=== PATIENT | female | born 2000 | race Caucasian/White ===

== ENCOUNTER → 2019-01-09 | Day surgery (SDC) | payer BC, OTHER ==
[2019-01-02 14:47] VITALS: BMI 23.6
[~2019-01-09] MED LIST: SODIUM CHLORIDE 0.9% 1,000 ML IV SCH
[2019-01-09 08:55] VITALS: RESP 18; TEMP 98.4
[2019-01-09 11:03] VITALS: BP 124/68; PULSE 68
--- NOTE | 2019-01-09 11:24 | P.PCN ---
Preoperative Diagnosis: Diagnosis Recurrent presyncope Twelve-lead ECG Sinus mechanism normal [place] narrow QRS waves no delta waves normal st segments normal qt interval Tilt table test per protocol baseline heart rate 71 beats a minute baseline blood pressure 117/74 mmhg patient was tilted upright at 70 per protocol in immediate drop in blood pressure 90/54 mmhg associated with lightheadedness however this resolved quickly and her blood pressure normalized and remained in the normal range thereafter between 110-133 mmhg systolic and the diastolic mostly in the 70s heart rates remained in the 80s and 90s there is no evidence for neurocardiogenic syncope When she was laid supine heart rate went down to 61 beats a minute Impression normal twelve-lead ecg no evidence for neurocardiogenic syncope normal blood pressure response to upright tilting minimal increase in heart rate upon standing, in the first 10 minutes to about a maximum of 20 beats
== END ==
LOC: CATHEP 08:34
PROVIDERS: ATTEND Internal Medicine Clinical Cardiac Electrophysiology
DX: R55 Syncope and collapse (principal); Z88.5 Allergy status to narcotic agent; Z88.0 Allergy status to penicillin
CPT/HCPCS: 93660

== ENCOUNTER → 2019-07-25 | Outpatient (CLI) | payer BC ==
--- NOTE | 2019-07-25 10:22 | US ---
EXAMINATION TYPE: US abdomen complete DATE OF EXAM: 07/25/2019 COMPARISON: NONE CLINICAL HISTORY: R11.2 nausea with vomiting, unspecified, R19.7; on control pills. EXAM MEASUREMENTS: Liver Length: 12.5 cm Gallbladder Wall: 0.2 cm CBD: 0.2 cm Spleen: 9.2 cm Right Kidney: 10.2 x 5.0 x 3.5 cm Left Kidney: 9.8 x 4.4 x 5.0 cm Pancreas: wnl Liver: periportal wall brightness is noted Gallbladder: wnl Evidence for sonographic Harris's sign: no CBD: wnl Spleen: wnl Right Kidney: No hydronephrosis or masses seen Left Kidney: No hydronephrosis or masses seen Upper IVC: wnl Abd Aorta: wnl The intrahepatic portion of the IVC and proximal abdominal aorta are within normal limits. There i s no evidence of cholelithiasis. Common bile duct is unremarkable. The visualized portions of the p ancreas are homogenous. The spleen is unremarkable. Kidneys are symmetric and free of hydronephrosi s. No renal lesions are seen. IMPRESSION: Portal triads are echogenic, which could relate to technique in this patient with a pauci ty of abdominal fat, however this can be seen in the setting of hepatitis and corresponding bloodwork is recommended to exclude hepatitis in this patient with nausea and vomiting.
== END | disposition home or self-care (01) ==
LOC: RADUSWWP 06:50
PROVIDERS: ATTEND Family Medicine
DX: R11.2 Nausea with vomiting, unspecified (principal); R19.7 Diarrhea, unspecified
CPT/HCPCS: 76700

== ENCOUNTER → 2019-10-31 | Outpatient (CLI) | payer BC ==
[2019-10-31 13:39] LABS: HCT 44.4 % (34.0-46.0); HGB 13.9 gm/dL (11.4-16.0); MCH 29.9 pg (25.0-35.0); MCHC 31.2 g/dL (31.0-37.0); MCV 95.8 fL (80.0-100.0); Mean Platelet Volume 8.1; Platelet Count 219 k/uL (150-450); RBC 4.64 m/uL (3.80-5.40); RDW 12.6 % (11.5-15.5); WBC 4.2 k/uL (4.0-11.0)
[2019-10-31 18:53] LABS: Albumin/Globulin Ratio 2.5 (1.60-3.17); Anion Gap 5.2 mmol/L (4.00-12.00); BUN/Creat Ratio 8.75 Ratio (12.00-20.00); Calcium 9.5 mg/dL (8.7-10.3); Carbon Dioxide 26.8 mmol/L (21.6-31.8); Magnesium 2.1 mg/dL (1.5-2.4); Non-African American GFR(CKD) 106.1 (60.0-200.0); Potassium 4.7 mmol/L (3.5-5.5); Total Bilirubin 0.6 mg/dL (0.3-1.2)
== END | disposition home or self-care (01) ==
LOC: LABWHC1 13:17
PROVIDERS: ATTEND Nurse Practitioner Adult Health
DX: I95.1 Orthostatic hypotension (principal); R00.0 Tachycardia, unspecified
CPT/HCPCS: 36415; 80053; 83735; 84443; 84481; 85027

== ENCOUNTER → 2019-12-09 | Outpatient (CLI) | payer BC ==
[2019-12-09 20:41] LABS: Gliadin AB IgA, Deaminated NEGATIVE (NEGATIVE); Gliadin AB IgA, Unit <0.2 U/mL; Gliadin AB IgG, Deaminated NEGATIVE (NEGATIVE)
== END | disposition home or self-care (01) ==
LOC: LABWHC1 12:06
PROVIDERS: ATTEND Nurse Practitioner
DX: R63.4 Abnormal weight loss (principal)
CPT/HCPCS: 36415; 83516

== ENCOUNTER 2020-01-01 08:11 | Emergency (ER) | payer BC ==
[2020-01-01 08:16] VITALS: RESP 18
[2020-01-01] MEDS ORDERED: SODIUM CHLORIDE 0.9% 2,000 ML IV ONE (08:36)
[2020-01-01] MEDS ORDERED: ONDANSETRON 4 MG/2 ML VIAL IVP STA (08:37)
--- NOTE | 2020-01-01 08:41 | ED ---
Abdominal Pain HPI - General Chief Complaint: Abdominal Pain Stated Complaint: vomiting Time Seen by Provider: 01/01/20 08:24 Source: patient, RN notes reviewed, old records reviewed Mode of arrival: wheelchair Limitations: no limitations - History of Present Illness Initial Comments: Patient is a 19-year-old female who presents emergency department today for concern for nausea and vomiting starting this morning as well as some episodes of diarrhea and abdominal cramping. Symptoms occurred this morning but she has been doing a bowel prep for a scheduled colonoscopy and EGD to be completed today by Dr. Quezada. Patient reports that she's been feeling somewhat dizzy and lightheaded this morning since the vomiting and diarrhea. Concern for dehydrat ion. Mother reports she feels pale. Patient has a history of low heart rate and mother was concerned with that in regards to her dizziness as well. Denies any local abdominal pain and reports just a cramping pain. - Related Data Home Medications Medication Instructions Recorded Confirmed Albuterol Sulfate [Proair Hfa] 1 - 2 puff INHALATION Q6HR PRN 01/02/19 12/30/19 Multivitamins, Thera [Multivitamin 1 tab PO DAILY 12/30/19 12/30/19 (formulary)] Nadolol [Corgard] 10 mg PO QAM 12/30/19 12/30/19 Norethindrone-E.estradiol-Iron 1 each PO QAM 12/30/19 12/30/19 [Junel Fe 1 mg-20 Mcg Tablet] Ondansetron HCl [Zofran] 4 mg PO Q4HR PRN 12/30/19 12/30/19 Allergies Allergy/AdvReac Type Severity Reaction Status Date / Time codeine Allergy Nausea & Verified 01/01/20 08:14 Vomiting & Diarrhea Penicillins AdvReac Nausea & Verified 01/01/20 08:14 Vomiting Review of Systems ROS Statement: Those systems with pertinent positive or pertinent negative responses have been documented in the HPI. ROS Other: All systems not noted in ROS Statement are negative. Past Medical History Past Medical History: Asthma Additional Past Medical History / Comment(s): headaches, POTS, nausea and vomiting, constipation/diarrhea, History of Any Multi-Drug Resistant Organisms: None Reported Past Surgical History: No Surgical Hx Reported Additional Past Surgical History / Comment(s): oral surgery Past Anesthesia/Blood Transfusion Reactions: Family History of Problems w/ Ane sthesia, Motion Sickness Additional Past Anesthesia/Blood Transfusion Reaction / Comment(s): mom woke up few times during surgery Past Psychological History: Anxiety Smoking Status: Never smoker Past Alcohol Use History: None Reported Past Drug Use History: Marijuana - Past Family History Mother Family Medical History: No Reported History General Exam - General Exam Comments Initial Comments: 19-year-old female. Alert and oriented 3. Limitations: no limitations General appearance: alert, in no apparent distress Head exam: Present: atraumatic, normocephalic, normal inspection Eye exam: Present: normal appearance, PERRL, EOMI. Absent: scleral icterus, conjunctival injection, periorbital swelling ENT exam: Present: normal exam, mucous membranes moist Neck exam: Present: normal inspection. Absent: tenderness, meningismus, lymphadenopathy Respiratory exam: Present: normal lung sounds bilaterally. Absent: respiratory distress, wheezes, rales, rhonchi, stridor Cardiovascular Exam: Present: regular rate, normal rhythm, normal heart sounds. Absent: systolic murmur, diastolic murmur, rubs, gallop, clicks GI/Abdominal exam: Present: soft, normal bowel sounds. Absent: distended, tenderness, guarding, rebound, rigid Extremities exam: Present: normal inspection, full ROM, normal capillary refill. Absent: tenderness, pedal edema, joint swelling, calf tenderness Back exam: Present: normal inspection Neurological exam: Present: alert, oriented X3, CN II-XII intact Psychiatric exam: Present: normal affect, normal mood Skin exam: Present: warm, dry, intact, normal color. Absent: rash Course Vital Signs 01/01/20 01/01/20 08:14 09:24 Temperature 98.3 F 97.8 F Pulse Rate 55 L 52 L Respiratory 18 18 Rate Blood Pressure 128/91 138/87 O2 Sat by Pulse 100 100 Oximetry Medical Decision Making - Medical Decision Making 19-year-old female presents emergency room today for nausea and vomiting diarrhea episodes after completing bowel prep for upcoming EGD and colonoscopy today. Patient arrived white pale lining of nausea. She appeared clinically dehydrated with dry oropharynx. She is given 2 L bolus. Laboratory obtained results of the unremarkable. She does feel better after receiving hydration. Patient is concerned she's had a low heart rate. She solicited and a beta snow and she did not take that today. Discussed discontinuing falling up with cardiology in regards to reach zooming a beta snow. Patient understands treatment plan will comply. She'll be discharged from the ER and go directly to Endo for her procedures. - Lab Data Result diagrams: 01/01/20 08:42 01/01/20 08:42 Lab Results 01/01/20 01/01/20 01/01/20 Range/Units 08:42 08:42 08:42 WBC 6.6 (4.0-11.0) k/uL RBC 4.91 (3.80-5.40) m/uL Hgb 15.1 (11.4-16.0) gm/dL Hct 45.3 (34.0-46.0) % MCV 92.3 (80.0-100.0) fL MCH 30.7 (25.0-35.0) pg MCHC 33.3 (31.0-37.0) g/dL RDW 12.2 (11.5-15.5) % Plt Count 284 (150-450) k/uL Neutrophils % 61 % Lymphocytes % 29 % Monocytes % 6 % Eosinophils % 1 % Basophils % 1 % Neutrophils # 4.0 (1.3-7.7) k/uL Lymphocytes # 1.9 (1.0-4.8) k/uL Monocytes # 0.4 (0-1.0) k/uL Eosinophils # 0.1 (0-0.7) k/uL Basophils # 0.1 (0-0.2) k/uL Sodium 138 (137-145) mmol/L Potassium 5.1 (3.5-5.1) mmol/L Chloride 105 (98-107) mmol/L Carbon Dioxide 23 (22-30) mmol/L Anion Gap 10 mmol/L BUN 9 (7-17) mg/dL Creatinine 0.83 (0.52-1.04) mg/dL Est GFR (CKD-EPI)AfAm >90 (>60 ml/min/1.73 sqM) Est GFR (CKD-EPI)NonAf >90 (>60 ml/min/1.73 sqM) Glucose 104 H (74-99) mg/dL Calcium 10.6 H (8.4-10.2) mg/dL Total Bilirubin 1.2 (0.2-1.3) mg/dL AST 23 (14-36) U/L ALT 15 (4-34) U/L Alkaline Phosphatase 44 (38-126) U/L Total Protein 8.0 (6.3-8.2) g/dL Albumin 5.1 H (3.5-5.0) g/dL HCG, Qual Not Detected 01/01/20 09:08 EKG performed shows sinus bradycardia otherwise normal EKG. Ventricular rate of 47 bpm. Verbal is 118 ms. QRS duration is 92 ms. QT QTc is 456/403 ms. Disposition Clinical Impression: Dehydration, Bradycardia Disposition: HOME SELF-CARE Condition: Good Instructions (If sedation given, give patient instructions): Dehydration (ED) Additional Instructions: Follow-up with GI for this procedure to chart going to regards to findings. Recommended follow-up with her it support specialist in discussing beta snow dosing. Is patient prescribed a controlled substance at d/c from ED?: No Referrals: Priya Zimmerman III, MD [Primary Care Provider] - 1-2 days Time of Disposition: 10:01
[2020-01-01 08:59] LABS: Basophils # (A) 0.1 k/uL (0-0.2); Basophils % (A) 1 %; Eosinophils # (A) 0.1 k/uL (0-0.7); Eosinophils % (A) 1 %; HCT 45.3 % (34.0-46.0); HGB 15.1 gm/dL (11.4-16.0); Lymphocytes # (A) 1.9 k/uL (1.0-4.8); Lymphocytes % (A) 29 %; MCH 30.7 pg (25.0-35.0); MCHC 33.3 g/dL (31.0-37.0); MCV 92.3 fL (80.0-100.0); Mean Platelet Volume 7.9; Monocytes # (A) 0.4 k/uL (0-1.0); Monocytes % (A) 6 %; Neutrophils % (A) 61 %; Platelet Count 284 k/uL (150-450); RBC 4.91 m/uL (3.80-5.40); RDW 12.2 % (11.5-15.5); WBC 6.6 k/uL (4.0-11.0)
[2020-01-01 09:05] LABS: ALT 15 U/L (4-34); AST 23 U/L (14-36); African American GFR (CKD) >90 (>60 ml/min/1.73 sqM); Albumin 5.1 g/dL (3.5-5.0); Alkaline Phosphatase 44 U/L (38-126); Anion Gap 10 mmol/L; Blood Urea Nitrogen 9 mg/dL (7-17); Calcium 10.6 mg/dL (8.4-10.2); Carbon Dioxide 23 mmol/L (22-30); Chloride 105 mmol/L (98-107); Glucose 104 mg/dL (74-99); Non-African American GFR(CKD) >90 (>60 ml/min/1.73 sqM); Potassium 5.1 mmol/L (3.5-5.1); Sodium 138 mmol/L (137-145); Total Bilirubin 1.2 mg/dL (0.2-1.3)
[2020-01-01 09:26] VITALS: BP 138/87; PULSE 52; TEMP 97.8
== END 2020-01-01 10:16 | disposition home or self-care (01) ==
LOC: EC 08:11
DX: E86.0 Dehydration (principal); R00.1 Bradycardia, unspecified; R11.2 Nausea with vomiting, unspecified; R10.9 Unspecified abdominal pain; R19.7 Diarrhea, unspecified; J45.909 Unspecified asthma, uncomplicated; Z79.51 Long term (current) use of inhaled steroids; Z79.3 Long term (current) use of hormonal contraceptives; Z88.5 Allergy status to narcotic agent; Z88.0 Allergy status to penicillin
CPT/HCPCS: 36415; 93005; 80053; 85025; 84703; 99284; 96374; 96361; J2405

== ENCOUNTER 2020-01-01 10:35 | Day surgery (SDC) | payer BC ==
[2019-12-30 11:55] VITALS: BMI 18.3
[~2020-01-01 10:35] MED LIST changes: +LACTATED RINGERS 1,000 ML IV SCH; -SODIUM CHLORIDE 0.9% 1,000 ML IV SCH
[2020-01-01 10:41] VITALS: TEMP 97.5
[2020-01-01] MEDS ORDERED: PROPOFOL 10 MG/ML 20 ML VIAL IV ONE (11:19)
[2020-01-01] MEDS ORDERED: MIDAZOLAM 2 MG/2 ML VIAL ONE (11:19)
[2020-01-01] MEDS ORDERED: fentaNYL (PF) 50 MCG/ML 2 ML AMP ONE (11:19)
--- NOTE | 2020-01-01 11:40 | P.PCN ---
Date of Procedure: 01/01/20 Procedure(s) Performed: Brief history: Patient is a pleasant 19-year-old white female scheduled for an elective upper endoscopy as well as colonoscopy as a part of evaluation of abdominal pain, intermittent nausea vomiting, fevers habits for the last 9 months duration. She lost 50 pounds since onset of the symptoms Procedure performed: Esophagogastroduodenoscopy with biopsy Colonoscopy with biopsy Preoperative diagnosis: Abdominal pain/nausea vomiting change in bowel habits Progressive weight loss of 50 pounds in the last 6 months Anesthesia: MAC Procedure: After informed consent was obtained from the patient was brought into the endoscopy unit and IV sedation was administered by anesthesia under continuous monitoring. Initially upper endoscopy was done. The Olympus GF 160 video endoscope was inserted inserted into the mouth and esophagus intubated without any difficulty and was gradually advanced into the stomach and duodenum and carefully examined. The bulb and second part of the duodenum appeared normal. Abscesses were done from the duodenum to rule out celiac disease. The scope was then withdrawn into the stomach adequately insufflated with air and upon careful examination the antrum mild gastritis and biopsies were done from this area. The body, cardia and fundus appeared normal. The scope was then withdrawn into the esophagus. The GE junction was located at 40 cm to the incisors. It appeared regular with no erythema erosions or ulcerations. Rest of the esophagus appeared normal. Patient tolerated the procedure well. At this time the patient continued to remain sedation. Initial digital rectal examination was normal. Olympus CF 160 video colonoscope was then inserted into the rectum and gradually advanced to the cecum without any difficulty. Careful examination was performed as the scope was gradually being withdrawn. The prep wasfair. Terminal ileum was intubated and 20 cm visualized appeared normal. Biopsies were done from this area.The cecum, ascending colon, transverse colon, descending colon, sigmoid colon and rectum appeared normal. and biopsies were done from ascending and descending colon to rule out microscopic/collagenous colitis. Retroflexion was performed in the rectum and no lesions were noted. Patient tolerated the procedure well. Impression: 1 Upper endoscopy revealed mild antral gastritis 2 Colonoscopy was essentially within normal limits with colitis or colorectal neoplasia ] Recommendations: Findings of this examination were discussed with the patient as well as her family. She was advised to follow with the biopsy results and she'll be seen in office in 2-3 weeks.
[2020-01-01 11:52] VITALS: RESP 16
[2020-01-01 12:00] VITALS: BP 114/75; PULSE 63
== END 2020-01-01 12:21 | disposition home or self-care (01) ==
LOC: ORWHC2ENDO 10:35
PROVIDERS: ATTEND Internal Medicine Gastroenterology
DX: K29.50 Unspecified chronic gastritis without bleeding (principal); R19.4 Change in bowel habit; Z79.899 Other long term (current) drug therapy; Z88.5 Allergy status to narcotic agent; Z88.0 Allergy status to penicillin; J45.909 Unspecified asthma, uncomplicated; Z98.890 Other specified postprocedural states
CPT/HCPCS: 81025; 88305; 45380; 43239; J2250; J3010; J2704

== ENCOUNTER 2020-02-02 13:47 | Emergency (ER) | payer BC ==
[2020-02-02 14:25] VITALS: RESP 18
[2020-02-02] MEDS ORDERED: SODIUM CHLORIDE 0.9% 1,000 ML IV STA ×2 (15:03)
--- NOTE | 2020-02-02 15:11 | ED ---
Chest Pain HPI - General Chief Complaint: Chest Pain Stated Complaint: Chest Pain,SOB Time Seen by Provider: 02/02/20 14:51 Source: patient, family, RN notes reviewed, old records reviewed Mode of arrival: wheelchair Limitations: no limitations - History of Present Illness Initial Comments: Elen is a 19-year-old female presents the ER today for multiple chief complaints. She states that she has been having some intermittent chest pain shortness of breath stating that she has had nausea and vomiting for the past few days as well. Patient states that she feels that she can't take a full deep breath. She states that she knows that her apartment is exposed to black mold wants to have testing for this. Patient states that she's had significant weight loss unintentional for the past few months. She's been evaluated by GI multiple specialists. Patient reports that with a known exposure to mold she wanted to have this ruled out as the cause for all of her multiple symptoms. - Related Data Home Medications Medication Instructions Recorded Confirmed Albuterol Sulfate [Proair Hfa] 1 - 2 puff INHALATION Q6HR PRN 01/02/19 01/01/20 Multivitamins, Thera [Multivitamin 1 tab PO DAILY 12/30/19 01/01/20 (formulary)] Nadolol [Corgard] 10 mg PO QAM 12/30/19 01/01/20 Norethindrone-E.estradiol-Iron 1 each PO QAM 12/30/19 01/01/20 [Junel Fe 1 mg-20 Mcg Tablet] Ondansetron HCl [Zofran] 4 mg PO Q4HR PRN 12/30/19 01/01/20 Allergies Allergy/AdvReac Type Severity Reaction Status Date / Time codeine Allergy Nausea & Verified 02/02/20 14:25 Vomiting & Diarrhea Penicillins AdvReac Nausea & Verified 02/02/20 14:25 Vomiting Review of Systems ROS Statement: Those systems with pertinent positive or pertinent negative responses have been documented in the HPI. ROS Other: All systems not noted in ROS Statement are negative. EKG Findings - EKG Comments: EKG Findings:: EKG shows normal sinus rhythm normal EKG. Ventricular rate at 64 bpm.. Intervals 114 ms. QS duration is 92 ms. QT QTc is 408/420 ms. Past Medical History Past Medical History: Asthma Additional Past Medical History / Comment(s): headaches, POTS, nausea and vomiting, constipation/diarrhea, History of Any Multi-Drug Resistant Organisms: None Reported Past Surgical History: No Surgical Hx Reported Additional Past Surgical History / Comment(s): oral surgery Past Anesthesia/Blood Transfusion Reactions: Family History of Problems w/ Anesthesia, Motion Sickness Additional Past Anesthesia/Blood Transfusion Reaction / Comment(s): mom woke up few times during surgery Past Psychological History: Anxiety Smoking Status: Never smoker Past Alcohol Use History: None Reported Past Drug Use History: Marijuana - Past Family History Mother Family Medical History: No Reported History General Exam - General Exam Comments Initial Comments: Well-appearing 19-year-old female. No distress. Limitations: no limitations General appearance: alert, in no apparent distress Head exam: Present: atraumatic, normocephalic, normal inspection Eye exam: Present: normal appearance, PERRL, EOMI. Absent: scleral icterus, conjunctival injection, periorbital swelling ENT exam: Present: normal exam, mucous membranes moist Neck exam: Present: normal inspection. Absent: tenderness, meningismus, lymphadenopathy Respiratory exam: Present: normal lung sounds bilaterally. Absent: respiratory distress, wheezes, rales, rhonchi, stridor Cardiovascular Exam: Present: regular rate, normal rhythm, normal heart sounds. Absent: systolic murmur, diastolic murmur, rubs, gallop, clicks GI/Abdominal exam: Present: soft, normal bowel sounds. Absent: distended, tenderness, guarding, rebound, rigid Extremities exam: Present: normal inspection, full ROM, normal capillary refill. Absent: tenderness, pedal edema, joint swelling, calf tenderness Back exam: Present: normal inspection Course Vital Signs 02/02/20 02/02/20 02/02/20 14:20 16:17 17:06 Temperature 99.1 F 98.7 F Pulse Rate 82 65 65 Respiratory 18 18 18 Rate Blood Pressure 116/80 108/68 105/65 O2 Sat by Pulse 98 100 100 Oximetry Chest Pain MDM - MDM 19-year-old female multiple complaints including weight loss for the past few months and today presents with some history of chest injury aspect. Lungs are clear to auscultation. Patient wanted to be checked for mold exposure. Labs r eviewed and unremarkable. EKG shows no acute changes. Patient is scheduled have a Holter monitor placed this week and changing her cardiac medication with her supervisor inspection this week. Patient at this time and appears in no distress. Discussed following up with PCP and cardio. No lab abnormalities. IgE mold testing was sent. Disposition Clinical Impression: Atypical chest pain Disposition: HOME SELF-CARE Condition: Good Instructions (If sedation given, give patient instructions): Chest Pain (ED) Additional Instructions: Please follow up with family doctor if symptoms have not improved over the next two days. Please return to the emergency room if your symptoms increase or worsen or for any other concerns. Is patient prescribed a controlled substance at d/c from ED?: No Referrals: Priya Zimmerman III, MD [Primary Care Provider] - 1-2 days Time of Disposition: 16:51
[2020-02-02 15:31] LABS: Basophils % (A) 1 %; Eosinophils % (A) 0 %; HCT 40.5 % (34.0-46.0); HGB 13.3 gm/dL (11.4-16.0); Lymphocytes # (A) 1.7 k/uL (1.0-4.8); Lymphocytes % (A) 42 %; MCH 30.4 pg (25.0-35.0); MCHC 32.9 g/dL (31.0-37.0); MCV 92.4 fL (80.0-100.0); Mean Platelet Volume 7.8; Monocytes # (A) 0.3 k/uL (0-1.0); Monocytes % (A) 6 %; Neutrophils % (A) 49 %; Platelet Count 221 k/uL (150-450); RBC 4.39 m/uL (3.80-5.40); RDW 11.7 % (11.5-15.5); WBC 4.1 k/uL (4.0-11.0)
[2020-02-02 15:41] LABS: ALT 13 U/L (4-34); AST 22 U/L (14-36); African American GFR (CKD) >90 (>60 ml/min/1.73 sqM); Albumin 4.4 g/dL (3.5-5.0); Alkaline Phosphatase 39 U/L (38-126); Anion Gap 8 mmol/L; Blood Urea Nitrogen 10 mg/dL (7-17); Calcium 9.6 mg/dL (8.4-10.2); Carbon Dioxide 23 mmol/L (22-30); Chloride 106 mmol/L (98-107); Glucose 83 mg/dL (74-99); Lipase 48 U/L (23-300); Magnesium 2.1 mg/dL (1.6-2.3); Non-African American GFR(CKD) >90 (>60 ml/min/1.73 sqM); Potassium 3.9 mmol/L (3.5-5.1); Sodium 137 mmol/L (137-145); Total Bilirubin 0.8 mg/dL (0.2-1.3); Total Protein 6.9 g/dL (6.3-8.2)
[2020-02-02 15:47] LABS: INR 1.2 (<1.2); Partial Thromboplastin Time 25.3 sec (22.0-30.0); Prothrombin Time 11.7 sec (9.0-12.0)
--- NOTE | 2020-02-02 15:47 | XR ---
EXAMINATION TYPE: XR chest 2V DATE OF EXAM: 02/02/2020 COMPARISON: Prior chest x-ray 05/02/2017 HISTORY: Chest pain TECHNIQUE: Frontal and lateral views of the chest are obtained. FINDINGS: There is no focal air space opacity, pleural effusion, or pneumothorax seen. The cardiac silhouette size is within normal limits. The osseous structures are intact. IMPRESSION: No acute cardiopulmonary process.
[2020-02-02] MEDS ORDERED: ONDANSETRON 4 MG/2 ML VIAL IVP STA (15:57)
[2020-02-02 16:18] VITALS: PULSE 65
[2020-02-02 17:07] VITALS: BP 105/65; TEMP 98.7
[2020-02-04 11:48] LABS: Alt. alternata IgE Class CLASS 0; Alternaria alternata IgE <0.10 kU/L (<0.10); Asperg. fumagatus IgE <0.10 kU/L (<0.10); Asperg. fumagatus IgE Class CLASS 0; Candida albicans IgE Class CLASS 0; Clad herbarum IgE <0.10 kU/L (<0.10); Clad herbarum IgE Class CLASS 0; Mucor racemosus IgE <0.10 kU/L (<0.10); Mucor racemosus IgE Class CLASS 0; Penicillium chrysogenum IgE <0.10 kU/L (<0.10); Penicillium chrysogenum IgE Cl CLASS 0
== END 2020-02-02 17:10 | disposition home or self-care (01) ==
LOC: EC 13:47
DX: R07.89 Other chest pain (principal); R63.4 Abnormal weight loss; J45.909 Unspecified asthma, uncomplicated; F41.9 Anxiety disorder, unspecified; Z79.899 Other long term (current) drug therapy; Z79.3 Long term (current) use of hormonal contraceptives; Z88.0 Allergy status to penicillin; Z88.5 Allergy status to narcotic agent
CPT/HCPCS: 36415; 93005; 86003; 80053; 83690; 83735; 84484; 85025; 85610; 85730; 71046; 99285; 96374; 96361 ×2; J2405

== ENCOUNTER 2020-02-23 11:14 | Emergency (ER) | payer BC ==
[2020-02-23 11:27] VITALS: TEMP 97.7
[2020-02-23] MEDS ORDERED: SODIUM CHLORIDE 0.9% 1,000 ML IV STA (12:25)
--- NOTE | 2020-02-23 12:27 | ED ---
General Adult HPI - General Chief complaint: Syncope Stated complaint: Vomiting Blood Time Seen by Provider: 02/23/20 11:42 Source: patient, RN notes reviewed Mode of arrival: ambulatory - History of Present Illness Initial comments: 19-year-old female with a past medical history of asthma, headaches, pots disease, nausea vomiting presents to the emergency room for several complaints. Patient reports that she has had episodes of pink vomit that she is concerned could be blood. Patient reports that she has had a colonoscopy and endoscopy within the past 6 months that was normal. Patient reports she had this because she is being worked up for weight loss. She reports she has lost 60 pounds in the past 6-8 months. Patient also reports that she was recently diagnosed with pots as she has several near syncopal episodes. She states she is now getting headaches before these episodes with the tingling to the back of her head. Mother is concerned about this is not any imaging has been done with her brain. Patient did have a syncopal episode this morning. She did see the it support engineer who recommended she see a neurologist so that is her next step.patient was start ed on a calcium channel snow 2 weeks ago for pots disease. Patient has no other complaints at this time including shortness of breath, chest pain, abdominal pain, nausea or vomiting, headache, or visual changes. - Related Data Home Medications Medication Instructions Recorded Confirmed Norethindrone-E.estradiol-Iron 1 each PO QAM 12/30/19 02/23/20 [Junel Fe 1 mg-20 Mcg Tablet] Ondansetron HCl [Zofran] 4 mg PO TID PRN 12/30/19 02/23/20 Escitalopram [Lexapro] 10 mg PO DAILY 02/23/20 02/23/20 Ivabradine HCl [Corlanor] 2.5 mg PO BID 02/23/20 02/23/20 Allergies Allergy/AdvReac Type Severity Reaction Status Date / Time codeine Allergy Nausea & Verified 02/23/20 12:56 Vomiting & Diarrhea Penicillins AdvReac Nausea & Verified 02/23/20 12:56 Vomiting Review of Systems ROS Statement: Those systems with pertinent positive or pertinent negative responses have been documented in the HPI. ROS Other: All systems not noted in ROS Statement are negative. Past Medical History Past Medical History: Asthma Additional Past Medical History / Comment(s): headaches, POTS, nausea and vomiting, constipation/diarrhea, History of Any Multi-Drug Resistant Organisms: None Reported Past Surgical History: No Surgical Hx Reported Additional Past Surgical History / Comment(s): oral surgery Past Anesthesia/Blood Transfusion Reactions: Family History of Problems w/ Anesthesia, Motion Sickness Additional Past Anesthesia/Blood Transfusion Reaction / Comment(s): mom woke up few times during surgery Past Psychological History: Anxiety Smoking Status: Never smoker Past Alcohol Use History: None Reported Past Drug Use History: Marijuana - Past Family History Mother Family Medical History: No Reported History General Exam General appearance: alert, in no apparent distress, anxious Head exam: Present: atraumatic, normocephalic, normal inspection Eye exam: Present: normal appearance, PERRL, EOMI. Absent: scleral icterus, conjunctival injection, periorbital swelling ENT exam: Present: normal exam, mucous membranes moist Neck exam: Present: normal inspection, full ROM. Absent: tenderness, meningismus, lymphadenopathy Respiratory exam: Present: normal lung sounds bilaterally. Absent: respiratory distress, wheezes, rales, rhonchi, stridor Cardiovascular Exam: Present: regular rate, normal rhythm, normal heart sounds. Absent: systolic murmur, diastolic murmur, rubs, gallop, clicks GI/Abdominal exam: Present: soft, normal bowel sounds. Absent: distended, tenderness, guarding, rebound, rigid Neurological exam: Present: alert, oriented X3, normal gait Course Vital Signs 02/23/20 02/23/20 02/23/20 11:23 11:53 14:19 Temperature 97.7 F Pulse Rate 64 56 L Pulse Rate [ 54 L Clinic Scheduler ] Pulse Rate [ Sitting] Pulse Rate [ Standing] Respiratory 16 12 Rate Blood Pressure 142/80 121/82 Blood Pressure [Sitting] Blood Pressure [Standing] Blood Pressure [Supine] O2 Sat by Pulse 100 100 Oximetry 02/23/20 14:41 Temperature Pulse Rate Pulse Rate [ 52 L Clinic Scheduler ] Pulse Rate [ 53 L Sitting] Pulse Rate [ 62 Standing] Respiratory Rate Blood Pressure Blood Pressure 124/83 [Sitting] Blood Pressure 132/92 [Standing] Blood Pressure 115/87 [Supine] O2 Sat by Pulse Oximetry EKG Findings - EKG Comments: EKG Findings:: Sinus bradycardia, ventricular rate 49, GA interval 128, QTc 417 Medical Decision Making - Medical Decision Making Vitals are stable. Orthostatics are normal. EKG shows a sinus bradycardia with a ventricular rate of 49. CBC CMP unremarkable. Urinalysis is negative. CT brain showed no acute intracranial hemorrhage, mass effect, or midline shift. There are low-lying cerebellar tonsils to be followed with MRI on a short-term basis as clinically warranted. Patient will make an appointment with neurology which she was already referred to. Patient also missed her appointment with her it support engineer today for a Holter monitor, she will call to follow up closely with them. She will return here for any worsening symptoms. - Lab Data Result diagrams: 02/23/20 12:53 02/23/20 12:53 Lab Results 02/23/20 02/23/20 02/23/20 Range/Units 12:53 12:53 12:53 WBC 4.2 (4.0-11.0) k/uL RBC 4.40 (3.80-5.40) m/uL Hgb 14.2 (11.4-16.0) gm/dL Hct 42.2 (34.0-46.0) % MCV 95.9 (80.0-100.0) fL MCH 32.2 (25.0-35.0) pg MCHC 33.5 (31.0-37.0) g/dL RDW 12.1 (11.5-15.5) % Plt Count 242 (150-450) k/uL Neutrophils % 70 % Lymphocytes % 23 % Monocytes % 4 % Eosinophils % 1 % Basophils % 1 % Neutrophils # 2.9 (1.3-7.7) k/uL Lymphocytes # 0.9 L (1.0-4.8) k/uL Monocytes # 0.2 (0-1.0) k/uL Eosinophils # 0.0 (0-0.7) k/uL Basophils # 0.0 (0-0.2) k/uL Sodium (137-145) mmol/L Potassium (3.5-5.1) mmol/L Chloride (98-107) mmol/L Carbon Dioxide (22-30) mmol/L Anion Gap mmol/L BUN (7-17) mg/dL Creatinine (0.52-1.04) mg/dL Est GFR (CKD-EPI)AfAm (>60 ml/min/1.73 sqM) Est GFR (CKD-EPI)NonAf (>60 ml/min/1.73 sqM) Glucose (74-99) mg/dL Calcium (8.4-10.2) mg/dL Total Bilirubin (0.2-1.3) mg/dL AST (14-36) U/L ALT (4-34) U/L Alkaline Phosphatase (38-126) U/L Total Protein (6.3-8.2) g/dL Albumin (3.5-5.0) g/dL TSH (0.465-4.680) mIU/L Urine Color Yellow Urine Appearance Cloudy H (Clear) Urine pH 6.0 (5.0-8.0) Ur Specific [place] 1.017 (1.001-1.035) Urine Protein Negative (Negative) Urine Glucose (UA) Negative (Negative) Urine Ketones Negative (Negative) Urine Blood Negative (Negative) Urine Nitrite Negative (Negative) Urine Bilirubin Negative (Negative) Urine Urobilinogen <2.0 (<2.0) mg/dL Ur Leukocyte Esterase Small H (Negative) Urine RBC <1 (0-5) /hpf Urine WBC 3 (0-5) /hpf Ur Squamous Epith Cells 4 (0-4) /hpf Urine Mucus Moderate H (None) /hpf Urine HCG, Qual Not Detected (Not Detectd) 02/23/20 Range/Units 12:53 WBC (4.0-11.0) k/uL RBC (3.80-5.40) m/uL Hgb (11.4-16.0) gm/dL Hct (34.0-46.0) % MCV (80.0-100.0) fL MCH (25.0-35.0) pg MCHC (31.0-37.0) g/dL RDW (11.5-15.5) % Plt Count (150-450) k/uL Neutrophils % % Lymphocytes % % Monocytes % % Eosinophils % % Basophils % % Neutrophils # (1.3-7.7) k/uL Lymphocytes # (1.0-4.8) k/uL Monocytes # (0-1.0) k/uL Eosinophils # (0-0.7) k/uL Basophils # (0-0.2) k/uL Sodium 138 (137-145) mmol/L Potassium 4.3 (3.5-5.1) mmol/L Chloride 108 H (98-107) mmol/L Carbon Dioxide 23 (22-30) mmol/L Anion Gap 7 mmol/L BUN 8 (7-17) mg/dL Creatinine 0.69 (0.52-1.04) mg/dL Est GFR (CKD-EPI)AfAm >90 (>60 ml/min/1.73 sqM) Est GFR (CKD-EPI)NonAf >90 (>60 ml/min/1.73 sqM) Glucose 92 (74-99) mg/dL Calcium 9.3 (8.4-10.2) mg/dL Total Bilirubin 0.6 (0.2-1.3) mg/dL AST 19 (14-36) U/L ALT 12 (4-34) U/L Alkaline Phosphatase 34 L (38-126) U/L Total Protein 6.5 (6.3-8.2) g/dL Albumin 4.1 (3.5-5.0) g/dL TSH 1.030 (0.465-4.680) mIU/L Urine Color Urine Appearance (Clear) Urine pH (5.0-8.0) Ur Specific [place] (1.001-1.035) Urine Protein (Negative) Urine Glucose (UA) (Negative) Urine Ketones (Negative) Urine Blood (Negative) Urine Nitrite (Negative) Urine Bilirubin (Negative) Urine Urobilinogen (<2.0) mg/dL Ur Leukocyte Esterase (Negative) Urine RBC (0-5) /hpf Urine WBC (0-5) /hpf Ur Squamous Epith Cells (0-4) /hpf Urine Mucus (None) /hpf Urine HCG, Qual (Not Detectd) Disposition Clinical Impression: Syncope Disposition: HOME SELF-CARE Condition: Good Instructions (If sedation given, give patient instructions): Syncope (ED) Additional Instructions: Please drink plenty of fluids. Follow-up with your it support engineer. Return to the emergency room for any worsening symptoms. Is patient prescribed a controlled substance at d/c from ED?: No Referrals: Priya Zimmerman III, MD [Primary Care Provider] - 1-2 days Time of Disposition: 15:16
[2020-02-23] MEDS ORDERED: ONDANSETRON 4 MG/2 ML VIAL IVP STA (12:58)
[2020-02-23 13:02] LABS: Basophils % (A) 1 %; Eosinophils % (A) 1 %; HCT 42.2 % (34.0-46.0); HGB 14.2 gm/dL (11.4-16.0); Lymphocytes # (A) 0.9 k/uL (1.0-4.8); Lymphocytes % (A) 23 %; MCH 32.2 pg (25.0-35.0); MCHC 33.5 g/dL (31.0-37.0); MCV 95.9 fL (80.0-100.0); Mean Platelet Volume 7.4; Monocytes # (A) 0.2 k/uL (0-1.0); Monocytes % (A) 4 %; Neutrophils # (A) 2.9 k/uL (1.3-7.7); Neutrophils % (A) 70 %; Platelet Count 242 k/uL (150-450); RDW 12.1 % (11.5-15.5); WBC 4.2 k/uL (4.0-11.0)
[2020-02-23 13:12] LABS: Appearance,Urine Cloudy (Clear); Bilirubin,Urine Negative (Negative); Blood,Urine Negative (Negative); Color,Urine Yellow; Glucose,Urine (UA) Negative (Negative); Ketones,Urine Negative (Negative); Leukocyte Esterase,Urine Small (Negative); Mucus,Urine Moderate /hpf; Nitrite,Urine Negative (Negative); Protein,Urine Negative (Negative); RBC,Urine <1 /hpf (0-5); Specific Gravity,Urine 1.017 (1.001-1.035); Squamous Epithelial Cell,Urine 4 /hpf (0-4); Urobilinogen,Urine <2.0 mg/dL (<2.0); WBC,Urine 3 /hpf (0-5)
--- NOTE | 2020-02-23 13:22 | CT ---
EXAMINATION TYPE: CT brain wo con DATE OF EXAM: 02/23/2020 COMPARISON: 05/02/2017 HISTORY: near syncope, migraine CT DLP: 1099.4 mGycm. Automated Exposure Control for Dose Reduction was Utilized. TECHNIQUE: CT scan of the head is performed without contrast. FINDINGS: There is no acute intracranial hemorrhage, mass effect, or midline shift identified. The ventricles and sulci are within normal limits in size. Chronic sinusitis with large retention cyst i nvolving the left maxillary sinus. Cerebellar tonsils low-lying position at the level of foramen magn um. IMPRESSION: No acute intracranial hemorrhage, mass effect, or midline shift is seen. Low-lying cereb ellar tonsils to be followed with MRI in a short-term basis as clinically warranted.
[2020-02-23 13:23] LABS: ALT 12 U/L (4-34); AST 19 U/L (14-36); African American GFR (CKD) >90 (>60 ml/min/1.73 sqM); Albumin 4.1 g/dL (3.5-5.0); Alkaline Phosphatase 34 U/L (38-126); Anion Gap 7 mmol/L; Blood Urea Nitrogen 8 mg/dL (7-17); Calcium 9.3 mg/dL (8.4-10.2); Carbon Dioxide 23 mmol/L (22-30); Chloride 108 mmol/L (98-107); Glucose 92 mg/dL (74-99); Non-African American GFR(CKD) >90 (>60 ml/min/1.73 sqM); Potassium 4.3 mmol/L (3.5-5.1); Sodium 138 mmol/L (137-145); Total Bilirubin 0.6 mg/dL (0.2-1.3); Total Protein 6.5 g/dL (6.3-8.2)
[2020-02-23 14:21] VITALS: RESP 12
[2020-02-23 15:18] VITALS: BP 116/68; PULSE 66
== END 2020-02-23 15:28 | disposition home or self-care (01) ==
LOC: EC 11:14
DX: R55 Syncope and collapse (principal); R11.2 Nausea with vomiting, unspecified; R00.1 Bradycardia, unspecified; F41.9 Anxiety disorder, unspecified; Z79.899 Other long term (current) drug therapy; Z88.0 Allergy status to penicillin; Z88.5 Allergy status to narcotic agent
CPT/HCPCS: 36415; 93005; 80053; 84443; 85025; 81001; 81025; 70450; 99284; 96374; J2405

== ENCOUNTER → 2020-03-17 | Outpatient (CLI) | payer BC ==
[2020-03-18 05:39] LABS: Egg White IgE <0.10 kU/L
[2020-03-18 05:40] LABS: Peanut IgE <0.10 kU/L; Soybean IgE <0.10 kU/L; Walnut IgE (Food) <0.10 kU/L
[2020-03-18 05:42] LABS: Alternaria alternata IgE <0.10 kU/L; Aspergillus fumagatus IgE <0.10 kU/L; Cat Epith & Dander IgE <0.10 kU/L; Dermato. farinae IgE <0.10 kU/L
[2020-03-18 05:43] LABS: Dog Dander IgE <0.10 kU/L
[2020-03-18 14:43] LABS: Pea IgE (Grn) <0.10 kU/L (<0.10); Pea(Grn) IgE Class CLASS 0
[2020-03-18 14:44] LABS: Almond IgE <0.10 kU/L (<0.10); Almond IgE Class CLASS 0; Pecan IgE <0.10 kU/L (<0.10); Pecan IgE Class CLASS 0
[2020-03-18 14:45] LABS: Cashew IgE <0.10 kU/L (<0.10); Cashew IgE Class CLASS 0; Pistachio IgE Class CLASS 0
[2020-03-18 14:46] LABS: Chicken IgE Class CLASS 0; Penicillium notatum IgE Class CLASS 0; Tuna IgE <0.10 kU/L (<0.10); Tuna IgE Class CLASS 0
[2020-03-18 14:47] LABS: Epicoccum purpurascens Class CLASS 0; Epicoccum purpurascens IgE <0.10 kU/L (<0.10); Green Bean IgE <0.10 kU/L (<0.10); Green Bean IgE Class CLASS 0
== END | disposition home or self-care (01) ==
LOC: LABWHC1 14:24
PROVIDERS: ATTEND Allergy & Immunology
DX: T78.2XXA Anaphylactic shock, unspecified, initial encounter (principal)
CPT/HCPCS: 36415; 83520; 86003

== ENCOUNTER → 2020-03-26 | Outpatient (CLI) | payer BC ==
[2020-03-26 21:31] LABS: C Reactive Protein <0.4 mg/dL (0.0-0.8); Total Protein 6.9 g/dL (6.2-8.2)
== END | disposition home or self-care (01) ==
LOC: LABWHC1 11:17
PROVIDERS: ATTEND Psychiatry & Neurology Neurology
DX: R63.4 Abnormal weight loss (principal)
CPT/HCPCS: 36415; 83516; 84155; 85302; 85303; 86038; 86140; 86255; 86334

== ENCOUNTER → 2020-05-03 | Outpatient (CLI) | payer BC | END | disposition home or self-care (01) | LOC: LABWHC1 13:14 | PROVIDERS: ATTEND Allergy & Immunology | DX: T78.2XXA Anaphylactic shock, unspecified, initial encounter (principal) | CPT/HCPCS: 36415; 83520 ==

== ENCOUNTER → 2022-09-28 | Outpatient (CLI) | payer BC ==
--- NOTE | 2022-09-28 13:16 | USB ---
Reason for Exam: Clinical finding. Technique: Method: Whole Breast Handheld. Findings: The whole breast of both breasts, the axilla of both breasts and the retroareolar of both breasts were scanned. A complete US of all four quadrants of both breasts, maxilla, and retro-areolar region were reviewed. Dense tissues are present throughout. No duct ectasia or axillary lymphadenopathy. No solid or cystic masses are identified.. Overall Assessment: Negative, BI-RAD 1 Management: Screening Mammogram of both breasts at age 39. Unless there is a clinical indication to start sooner. 1. Further clinical management of patient's bilateral breast pain. 2. Further clinical management of patient's whitish left-sided nipple discharge. Suspicious discharge that would warrant further evaluation includes clear or bloody spontaneous discharge localized to single pore on the nipple. 3. Patient should continue monthly self breast exams. Results were given to the patient verbally at the time of exam. Electronically signed and approved by: July Su M.D. Radiologist
== END | disposition home or self-care (01) ==
LOC: RADUSWWP 12:22
PROVIDERS: ATTEND Obstetrics & Gynecology
DX: N64.4 Mastodynia (principal); N64.52 Nipple discharge

== ENCOUNTER → 2022-10-17 | Outpatient (CLI) | payer BC ==
[2022-10-17 17:14] LABS: Partial Thromboplastin Time 25.1 sec (22.0-30.0); Prothrombin Time 10.9 sec (9.0-12.0)
== END | disposition home or self-care (01) ==
LOC: LABWHC1 16:12
PROVIDERS: ATTEND Family Medicine
DX: R23.3 Spontaneous ecchymoses (principal)
CPT/HCPCS: 36415; 85610; 85730

== ENCOUNTER → 2022-10-20 | Outpatient (CLI) | payer BC ==
[2022-10-20 10:11] VITALS: BP 127/89; PULSE 88; RESP 18; TEMP 98.1
--- NOTE | 2022-10-20 10:29 | P.GSHP ---
History of Present Illness H&P Date: 10/20/22 Chief Complaint: breast pain Elen is a 22 year old white female seen in consultation for DR. Mcgowan regarding breast pain. She had a bilateral ultrasound of hte breast on 09-28-22 which was BIRAD 1. She is complaining of left breast pain beginning in the lateral aspect of the breast for the past 6 months. The pain is intermittent and occurs of out every other day. At its worst it is about a 6. The location is in the lateral breast it does not seem despite any place. She is not experiencing pain in the right breast. She is complaining of a rash that occurs with the pain intermittently over the past several weeks. She also complains of left nipple inversion over the past several weeks. There is no spontaneous nipple discharge on either side. She is not complaining of any recent trauma or infection in the breast. Pain is not related to her menstrual cycles. Medically she has had recent weight loss, from 165 to 109. She was vomiting, and had nausea. She has had extensive work up without resolution. The vomiting has improved. She was hospitalized at least three times with dehydration. The patients mother has a history of lupus. She also bruises easily. Caffeine: occasional tea nicotine: vapes occasional chocolate: weekly BCP: stopped 5 months ago, is not sexually active put on for cramping; she had been on them since age 15 Family History: mother: lupus, mixed connective disease, POTS disease maternal grandmother: celiac disease paternal grandmother: bilateral breast cancer paternal aunt: breast cancer maternal great aunt: breast cancer Hormonal History: menarche: 14 Go LMP: September 30, 2022, irregular Surgical History; wisdom teeth colonoscopy/EGD/stress test Medical History: POTS disease severe anxiety IBS asthma Social History: nicotine: none, vape occasional weekly alcohol: rare, 3 times a year drugs: occasional marijuana - Constitutional Constitutional: Reports sweats - EENT Eyes: denies blurred vision, denies pain Ears: deny: decreased hearing, tinnitus Ears, nose, mouth and throat: Reports headache, Denies sore throat - Breasts Breasts: bilateral: as per HPI - Cardiovascular Cardiovascular: Reports chest pain, Reports shortness of breath - Respiratory Comment: asthma - Gastrointestinal Comment: IBS - Genitourinary (Female) Genitourinary: Denies dysuria, Denies hematuria - Menstruation Menstruation: Reports period normal - Musculoskeletal Musculoskeletal: Reports as per HPI - Integumentary Integumentary: Reports rash - Neurological Neurological: Denies numbness, Denies weakness - Psychiatric Psychiatric: Reports anxiety - Endocrine Endocrine: Reports fatigue - Hematologic/Lymphatic Comment: none Hematologic/Lymphatic: Reports as per HPI, Reports easy bruising - Allergic/Immunologic Allergic/Immunologic: Reports as per HPI, Reports seasonal allergies Past Medical History Past Medical History: Asthma Additional Past Medical History / Comment(s): headaches, POTS, nausea and vomiting, constipation/diarrhea, History of Any Multi-Drug Resistant Organisms: None Reported Past Surgical History: No Surgical Hx Reported Additional Past Surgical History / Comment(s): oral surgery Past Anesthesia/Blood Transfusion Reactions: Family History of Problems w/ Ane sthesia, Motion Sickness Additional Past Anesthesia/Blood Transfusion Reaction / Comment(s): mom woke up few times during surgery Past Psychological History: Anxiety Smoking Status: Never smoker Past Alcohol Use History: None Reported Past Drug Use History: Marijuana - Past Family History Mother Family Medical History: No Reported History Medications and Allergies Home Medications Medication Instructions Recorded Confirmed Type norethindrone-e.estradioL-iron 1 each PO QAM 12/30/19 02/23/20 History [Junel Fe 1 mg-20 Mcg Tablet] ondansetron HCL [Zofran] 4 mg PO TID PRN 12/30/19 02/23/20 History Escitalopram [Lexapro] 10 mg PO DAILY 02/23/20 02/23/20 History Ivabradine HCl [Corlanor] 2.5 mg PO BID 02/23/20 02/23/20 History Allergies Allergy/AdvReac Type Severity Reaction Status Date / Time codeine Allergy Nausea & Verified 02/23/20 12:56 Vomiting & Diarrhea Penicillins AdvReac Nausea & Verified 02/23/20 12:56 Vomiting Surgical - Exam - General no distress - Eyes normal ocular movement - ENT no hearing loss - Neck trachea midline - Respiratory normal respiratory effort, clear to auscultation - Cardiovascular Heart Sounds: normal: S1, S2 - Abdomen Abdomen: soft - Integumentary normal turgor - Neurologic no disoriented, no combative - Musculoskeletal normal gait, normal posture - Psychiatric oriented to time, oriented to person, oriented to place, speech is normal, memory intact Breast Exam: BRA: 34B Inspection: Bilateral grade 1 ptosis Palpation: Right breast: Multi-positional exam fibrocystic changes, no dominant masses or nodules of concern Right axilla: Shotty adenopathy Left breast: Multi-positional exam fibrocystic changes no dominant masses or nodules of concern, nipple with a slight cleft on examination but it does not remain inverted Left axilla: No adenopathy of concern Results Ultrasound results reviewed Assessment and Plan Assessment: Impression: History of asthma History of irritable bowel syndrome History of anxiety History of weight fluctuation with multiple hospitalizations related to dehydration Recent onset left breast pain with nipple changes Easy bruising Family history of lupus Recent bilateral breast ultrasound BIRADS 1; [id number] Plan: Breast modifications have been discussed the patient will consider these stopping any nicotine or caffeine intake Close surveillance with repeat ultrasound of the left breast in 6 months, if the nipple inversion becomes worse she will come in sooner Reassurance that at this time there is nothing on examination or radiographically to warrant interventional biopsy Continue workup to rule out a soft tissue disorder or inflammatory, autoimmune disorder Cc: Dr. Mcgowan
== END ==
LOC: WWCWWP 09:55
PROVIDERS: ATTEND Surgery
DX: Z80.3 Family history of malignant neoplasm of breast (principal); F41.9 Anxiety disorder, unspecified; N64.52 Nipple discharge; J45.909 Unspecified asthma, uncomplicated; K58.9 Irritable bowel syndrome, unspecified; N64.4 Mastodynia; Z83.2 Family history of diseases of the blood and blood-forming organs and certain disorders involving the immune mechanism; Z83.79 Family history of other diseases of the digestive system; Z88.0 Allergy status to penicillin; Z88.5 Allergy status to narcotic agent

== ENCOUNTER → 2022-12-29 | Outpatient (CLI) | payer BC ==
[2022-12-29 16:59] LABS: ALT 18 U/L (8-44); AST 21 U/L (13-35); Albumin 4.7 d/dL (3.8-4.9); Albumin/Globulin Ratio 2.61 Ratio (1.60-3.17); Alkaline Phosphatase 46 U/L (41-126); Blood Urea Nitrogen 11.4 mg/dL (9.0-27.0); Calcium 9.3 mg/dL (8.7-10.3); Carbon Dioxide 25.3 mmol/L (21.6-31.8); Chloride 105 mmol/L (96-109); Globulin 1.8 d/dL (1.6-3.3); Glucose 89 mg/dL (70-110); Potassium 4.4 mmol/L (3.5-5.5); Sodium 140 mmol/L (135-145); T4, Free (Free Thyroxine) 1.05 ng/dL (0.80-1.80); Total Bilirubin 0.4 mg/dL (0.3-1.2); Total Protein 6.5 d/dL (6.2-8.2)
== END | disposition home or self-care (01) ==
LOC: LABWHC1 10:27
PROVIDERS: ATTEND Internal Medicine Clinical Cardiac Electrophysiology
DX: R55 Syncope and collapse (principal); R00.2 Palpitations
CPT/HCPCS: 36415; 80053; 82533; 84439; 84443

== ENCOUNTER → 2023-04-17 | Outpatient (CLI) | payer BC ==
[2023-04-17 16:50] LABS: HCT 42.4 % (37.2-46.3); HGB 13.6 g/dL (12.0-15.0); MCH 30.8 pg (27.0-32.0); MCHC 32.1 g/dL (32.0-37.0); MCV 95.9 FL (80.0-97.0); NRBC Per 100 WBC 0 X 10*3/uL (0.00-0.01); Platelet Count 231 X 10*3/uL (140-440); RBC 4.42 X 10*6/uL (4.10-5.20); RDW 12.6 % (11.5-14.5); WBC 3.71 X 10*3/uL (4.50-10.00)
[2023-04-17 18:46] LABS: ALT 12 U/L (8-44); AST 15 U/L (13-35); Albumin 4.4 g/dL (3.8-4.9); Alkaline Phosphatase 44 U/L (41-126); Blood Urea Nitrogen 9.1 mg/dL (9.0-27.0); Calcium 9.5 mg/dL (8.7-10.3); Carbon Dioxide 19.7 mmol/L (21.6-31.8); Chloride 105 mmol/L (96-109); Globulin 2.1 g/dL (1.6-3.3); Glucose 88 mg/dL (70-110); Potassium 4.3 mmol/L (3.5-5.5); Sodium 140 mmol/L (135-145); T4, Free (Free Thyroxine) 1.27 ng/dL (0.80-1.80); Total Bilirubin 0.7 mg/dL (0.3-1.2); Total Protein 6.5 g/dL (6.2-8.2)
[2023-04-17 23:27] LABS: ACTH 12.3 pg/mL (0.00-45.99)
== END | disposition home or self-care (01) ==
LOC: LABWHC1 09:49
PROVIDERS: ATTEND Internal Medicine Endocrinology, Diabetes & Metabolism
DX: R53.83 Other fatigue (principal)
CPT/HCPCS: 36415; 80053; 82024; 82533; 82607; 84146; 84305; 84439; 84443; 84481; 85027; 86376

== ENCOUNTER → 2023-04-17 | Outpatient (CLI) | payer BC ==
--- NOTE | 2023-04-17 09:47 | USB ---
Reason for Exam: Clinical finding. Technique: Method: Whole Breast Handheld. Findings: The whole breast of the left breast, the axilla of the left breast and the retroareolar of the left breast were scanned. A complete US of all four quadrants of the left breast and retro-areolar region were reviewed. No solid or cystic masses are identified. No axillary lymphadenopathy. Overall Assessment: Negative, BI-RAD 1 Management: Screening Mammogram of both breasts at age 39. Unless there is an indication to start sooner. Further clinical management of patient's left breast pain. The patient reports a strong family history. Recommend further clinical assessment to determine when the patient's screening mammogram should start. A clinical breast exam by your physician is recommended on an annual basis and results should be correlated with mammographic findings. This exam should not preclude additional follow-up of suspicious palpable abnormalities. Results were given to the patient verbally at the time of exam. Electronically signed and approved by: July Su M.D. Radiologist
== END | disposition home or self-care (01) ==
LOC: RADUSWWP 09:11
PROVIDERS: ATTEND Surgery
DX: N64.4 Mastodynia (principal)

== ENCOUNTER → 2023-05-03 | Outpatient (CLI) | payer BC ==
[2023-05-03 12:13] VITALS: BP 119/78; PULSE 73; RESP 16; TEMP 98.2
--- NOTE | 2023-05-03 12:37 | P.PN ---
Subjective Progress Note Date: 05/03/23 breast pain Elen is a 22 year old white female seen in consultation on 10-20-[address] Mcgowan regarding breast pain. She had a bilateral ultedrasound of the breast on 09-28-22 which was BIRAD 1. She was complaining of left breast pain beginning in the lateral aspect of the breast for the past 6 months. The pain was intermittent and occur every other day. At its worst it is about a 6. The location is in the lateral breast it does not seem to spread any place. She is not experiencing pain in the right breast. She was complaining of a rash that occurs with the pain intermittently over the past several weeks. She also complained of left nipple inversion over the past several weeks. There is no spontaneous nipple discharge on either side. She was not complaining of any recent trauma or infection in the breast. Pain was not related to her menstrual cycles. Medically in October she had recent weight loss, from 165 to 109. She was vomiting, with nausea. She has had extensive work up without resolution. The vomiting has improved. She was hospitalized at least three times with dehydration. The patients mother has a history of lupus. She also bruises easily. The patient had a left breast ultrasound on 04-17-23 which was BIRAD 1. The patients pain has improved. She is not complaining of any new masses in her breast. She states the left nipple is not more inverted, but complains of some dry changes to the right nipple. She was diagnosed with Bari's thyroiditis. Within the last 2 months, she also has an elevated ZUHAIR and is being worked up for this. Caffeine: occasional tea nicotine: vapes occasional chocolate: weekly BCP: stopped 5 months ago, is not sexually active put on for cramping; she had been on them since age 15 Family History: mother: lupus, mixed connective disease, POTS disease maternal grandmother: celiac disease paternal grandmother: bilateral breast cancer paternal aunt: breast cancer maternal great aunt: breast cancer Hormonal History: menarche: 14 Go LMP: September 30, 2022, irregular Surgical History; wisdom teeth colonoscopy/EGD/stress test Medical History: POTS disease severe anxiety IBS asthma Bari's thyroiditis Social History: nicotine: none, vape occasional weekly alcohol: rare, 3 times a year drugs: occasional marijuana - Constitutional Constitutional: Reports sweats - EENT Eyes: denies blurred vision, denies pain Ears: deny: decreased hearing, tinnitus Ears, nose, mouth and throat: Reports headache, Denies sore throat - Breasts Breasts: bilateral: as per HPI - Cardiovascular Cardiovascular: Reports chest pain, Reports shortness of breath - Respiratory Comment: asthma - Gastrointestinal Comment: IBS - Genitourinary (Female) Genitourinary: Denies dysuria, Denies hematuria - Menstruation Menstruation: Reports period normal - Musculoskeletal Musculoskeletal: Reports as per HPI - Integumentary Integumentary: Reports rash - Neurological Neurological: Denies numbness, Denies weakness - Psychiatric Psychiatric: Reports anxiety - Endocrine Endocrine: Reports fatigue - Hematologic/Lymphatic Comment: none Hematologic/Lymphatic: Reports as per HPI, Reports easy bruising - Allergic/Immunologic Allergic/Immunologic: Reports as per HPI, Reports seasonal allergies Past Medical History Past Medical History: Asthma Additional Past Medical History / Comment(s): headaches, POTS, nausea and vomiting, constipation/diarrhea, History of Any Multi-Drug Resistant Organisms: None Reported Past Surgical History: No Surgical Hx Reported Additional Past Surgical History / Comment(s): oral surgery Past Anesthesia/Blood Transfusion Reactions: Family History of Problems w/ Anes thesia, Motion Sickness Additional Past Anesthesia/Blood Transfusion Reaction / Comment(s): mom woke up few times during surgery Past Psychological History: Anxiety Smoking Status: Never smoker Past Alcohol Use History: None Reported Past Drug Use History: Marijuana - Past Family History Mother Family Medical History: No Reported History Medications and Allergies Home Medications Medication Instructions Recorded Confirmed Type norethindrone-e.estradioL-iron 1 each PO QAM 12/30/19 02/23/20 History [Junel Fe 1 mg-20 Mcg Tablet] ondansetron HCL [Zofran] 4 mg PO TID PRN 12/30/19 02/23/20 History Escitalopram [Lexapro] 10 mg PO DAILY 02/23/20 02/23/20 History Ivabradine HCl [Corlanor] 2.5 mg PO BID 02/23/20 02/23/20 History Allergies Allergy/AdvReac Type Severity Reaction Status Date / Time codeine Allergy Nausea & Verified 02/23/20 12:56 Vomiting & Diarrhea Penicillins AdvReac Nausea & Verified 02/23/20 12:56 Vomiting Objective - Vital Signs Vital signs: Vital Signs Temp 98.2 F 05/03/23 12:05 Pulse 73 05/03/23 12:05 Resp 16 05/03/23 12:05 BP 119/78 05/03/23 12:05 Pulse Ox FiO2 Intake & Output 05/02/23 05/03/23 05/03/23 18:59 06:59 18:59 Weight 56.245 kg - Constitutional General appearance: Present: cooperative - EENT Eyes: Present: EOMI ENT: Present: hearing grossly normal - Neck Neck: Present: normal ROM - Respiratory Respiratory: bilateral: CTA - Cardiovascular Heart sounds: normal: S1, S2 - Integumentary Integumentary: Present: normal turgor - Musculoskeletal Musculoskeletal: Present: gait normal - Psychiatric Psychiatric: Present: A&O x's 3, appropriate affect, intact judgment & insight - Additional findings Additional findings: Breast Exam: BRA: 34B Inspection: Bilateral grade 1 ptosis Palpation: Right breast: Multi-positional exam fibrocystic changes, no dominant masses or nodules of concern Right axilla: Shotty adenopathy Left breast: Multi-positional exam fibrocystic changes no dominant masses or nodules of concern, nipple with a slight cleft on examination but it does not remain inverted Left axilla: No adenopathy of concern Examination today the patient has bilateral clear nipple discharge with some white discharge as well from the left side. A guaiac study was done on the right side this was guaiac negative, attempted guaiac study in the left side was not able to be performed as there was no further discharge even with palpation. Assessment and Plan Assessment: Impression: History of asthma History of irritable bowel syndrome History of anxiety History of weight fluctuation with multiple hospitalizations related to dehydration Recent onset left breast pain with nipple changes Easy bruising Family history of lupus bilateral breast ultrasound BIRADS 1; 48497; left breast ultrasound 04-17-23 BIRAD 1 Plan: lifestyle modifications have been discussed the patient will consider these stopping any nicotine or caffeine intake We'll ultrasound in 6 months with examination at that time If left nipple inversion increases she will see me sooner Reassurance that at this time there is nothing on examination or radiographically to warrant interventional biopsy Continue workup to rule out a soft tissue disorder or inflammatory, autoimmune disorder Cc: Dr. Mcgowan
== END ==
LOC: WWCWWP 11:50
PROVIDERS: ATTEND Surgery
DX: J45.909 Unspecified asthma, uncomplicated (principal); F41.9 Anxiety disorder, unspecified; K58.9 Irritable bowel syndrome, unspecified; E06.3 Autoimmune thyroiditis; N64.4 Mastodynia; F12.90 Cannabis use, unspecified, uncomplicated; Z80.3 Family history of malignant neoplasm of breast; Z88.0 Allergy status to penicillin; Z86.69 Personal history of other diseases of the nervous system and sense organs; K59.00 Constipation, unspecified; Z88.5 Allergy status to narcotic agent

== ENCOUNTER → 2023-10-22 | Outpatient (CLI) | payer BC ==
--- NOTE | 2023-10-22 11:10 | USB ---
Reason for Exam: Clinical finding. Technique: Method: Whole Breast Handheld. Findings: The whole breast of the left breast, the axilla of the left breast and the retroareolar of the left breast were scanned. No solid or cystic masses are identified.. Overall Assessment: Negative, BI-RAD 1 Management: Screening Mammogram of both breasts at age 39. A clinical breast exam by your physician is recommended on an annual basis and results should be correlated with mammographic findings. This exam should not preclude additional follow-up of suspicious palpable abnormalities. Results were given to the patient verbally at the time of exam. Electronically signed and approved by: Rufus Felton M.D. Radiologis
== END | disposition home or self-care (01) ==
LOC: RADUSWWP 10:32
PROVIDERS: ATTEND Surgery
DX: N64.52 Nipple discharge (principal); N64.59 Other signs and symptoms in breast

== ENCOUNTER → 2023-10-26 | Outpatient (CLI) | payer BC ==
--- NOTE | 2023-10-26 11:26 | P.PN ---
Subjective Progress Note Date: 10/26/23 10-26-23 breast pain Elen is a 23 year old white female seen in consultation on 10-20-[address] Mcgowan regarding breast pain. She had a bilateral ultra-sound of the breast on 09-28-22 which was BIRAD 1. She was complaining of left breast pain beginning in the lateral aspect of the breast for the past 6 months. The pain was intermittent and occured every other day. At its worst it is about a 6. The location is in the lateral breast it does not seem to spread any place. She is not experiencing pain in the right breast. She was complaining of a rash that occurs with the pain intermittently over the past several weeks. She also complained of left nipple inversion over the past several weeks. There is no spontaneous nipple discharge on either side. She was not complaining of any recent trauma or infection in the breast. Pain was not related to her menstrual cycles. Medically in October 2022 she had recent weight loss, from 165 to 109. She was vomiting, with nausea. She has had extensive work up without resolution. The vomiting has improved. She was hospitalized at least three times with dehydration. The patients mother has a history of lupus. She also bruises easily. The patient had a left breast ultrasound on 04-17-23 which was BIRAD 1. The patients pain has improved. She is not complaining of any new masses in her breast. She states the left nipple is not more inverted, but complains of some dry changes to the right nipple. She was diagnosed with Bari's thyroiditis. Within the last 2 months, she also has an elevated ZUHAIR and is being worked up for this. The patient had a left breast ultrasound on 10-22-23 which was BIRAD 1. The pain in the left breast has decreased. She is not complaining of any new lumps masses or nodules of concern in either breast. Caffeine: occasional tea; stopped caffeine nicotine: vapes occasional in the past, now has stopped, not smoking chocolate: occasional BCP: stopped 12 months ago, is not sexually active put on for cramping; she had been on them since age 15 Family History: mother: lupus, mixed connective disease, POTS disease maternal grandmother: celiac disease paternal grandmother: bilateral breast cancer paternal aunt: breast cancer maternal great aunt: breast cancer Hormonal History: menarche: 14 Go LMP: September 30, 2022, irregular Surgical History; wisdom teeth colonoscopy/EGD/stress test Medical History: POTS disease severe anxiety IBS asthma Bari's thyroiditis Social History: nicotine: none, vape occasional weekly alcohol: rare, 3 times a year drugs: occasional marijuana - Constitutional Constitutional: Reports sweats - EENT Eyes: denies blurred vision, denies pain Ears: deny: decreased hearing, tinnitus Ears, nose, mouth and throat: Reports headache, Denies sore throat - Breasts Breasts: bilateral: as per HPI - Cardiovascular Cardiovascular: Reports chest pain, Reports shortness of breath - Respiratory Comment: asthma - Gastrointestinal Comment: IBS - Genitourinary (Female) Genitourinary: Denies dysuria, Denies hematuria - Menstruation Menstruation: Reports period normal - Musculoskeletal Musculoskeletal: Reports as per HPI - Integumentary Integumentary: Reports rash - Neurological Neurological: Denies numbness, Denies weakness - Psychiatric Psychiatric: Reports anxiety - Endocrine Endocrine: Reports fatigue - Hematologic/Lymphatic Comment: none Hematologic/Lymphatic: Reports as per HPI, Reports easy bruising - Allergic/Immunologic Allergic/Immunologic: Reports as per HPI, Reports seasonal allergies Past Medical History Past Medical History: Asthma Additional Past Medical History / Comment(s): headaches, POTS, nausea and vomiting, constipation/diarrhea, History of Any Multi-Drug Resistant Organisms: None Reported Past Surgical History: No Surgical Hx Reported Additional Past Surgical History / Comment(s): oral surgery Past Anesthesia/Blood Transfusion Reactions: Family History of Problems w/ Anesthesia, Motion Sickness Additional Past Anesthesia/Blood Transfusion Reaction / Comment(s): mom woke up few times during surgery Past Psychological History: Anxiety Smoking Status: Never smoker Past Alcohol Use History: None Reported Past Drug Use History: Marijuana - Past Family History Mother Family Medical History: No Reported History Medications and Allergies Home Medications Medication Instructions Recorded Confirmed Type norethindrone-e.estradioL-iron 1 each PO QAM 12/30/19 02/23/20 History [Junel Fe 1 mg-20 Mcg Tablet] ondansetron HCL [Zofran] 4 mg PO TID PRN 12/30/19 02/23/20 History Escitalopram [Lexapro] 10 mg PO DAILY 02/23/20 02/23/20 History Ivabradine HCl [Corlanor] 2.5 mg PO BID 10/12/20 10/12/20 History Allergies Allergy/AdvReac Type Severity Reaction Status Date / Time codeine Allergy Nausea & Verified 02/23/20 12:56 Vomiting & Diarrhea Penicillins AdvReac Nausea & Verified 02/23/20 12:56 Vomiting Objective - Constitutional General appearance: Present: cooperative - EENT ENT: Present: hearing grossly normal - Neck Neck: Present: normal ROM - Respiratory Respiratory: bilateral: CTA - Cardiovascular Rhythm: regular Heart sounds: normal: S1, S2 - Integumentary Integumentary: Present: normal turgor - Musculoskeletal Musculoskeletal: Present: gait normal - Psychiatric Psychiatric: Present: A&O x's 3, appropriate affect, intact judgment & insight - Additional findings Additional findings: Breast Exam: BRA: 34B Inspection: Bilateral grade 1 ptosis Palpation: Right breast: Multi-positional exam fibrocystic changes, no dominant masses or nodules of concern Right axilla: no adenopathy of concern Left breast: Multi-positional exam fibrocystic changes no dominant masses or nodules of concern, nipple with a slight cleft on examination but it does not remain inverted Left axilla: No adenopathy of concern No nipple discharge on today's examination on either side Assessment and Plan Assessment: Impression: History of asthma History of irritable bowel syndrome History of anxiety History of weight fluctuation with multiple hospitalizations related to dehydration Recent onset left breast pain with nipple changes Easy bruising Family history of lupus bilateral breast ultrasound BIRADS 1; 03802; left breast ultrasound 04-17-23 BIRAD 1; left breast ultrasound 10-22-23 BIRAD 1 Mastodynia improved Plan: Follow-up in 1 year for breast examination Follow-up sooner any questions or concerns Follow-up if she develops nipple discharge with any bloody tinges to it or concerns Cc: Dr. Mcgowan Additional CC's: Arthur Kelley
[2023-10-26 11:33] VITALS: BP 108/78; PULSE 91; RESP 17; TEMP 98.2
== END ==
LOC: WWCWWP 10:42
PROVIDERS: ATTEND Surgery
DX: R92.8 Other abnormal and inconclusive findings on diagnostic imaging of breast (principal); N64.4 Mastodynia; E06.3 Autoimmune thyroiditis; F41.9 Anxiety disorder, unspecified; F17.290 Nicotine dependence, other tobacco product, uncomplicated; E86.0 Dehydration; Z80.3 Family history of malignant neoplasm of breast; Z87.19 Personal history of other diseases of the digestive system; Z88.5 Allergy status to narcotic agent; Z88.0 Allergy status to penicillin; Z79.890 Hormone replacement therapy; Z87.09 Personal history of other diseases of the respiratory system; Z83.2 Family history of diseases of the blood and blood-forming organs and certain disorders involving the immune mechanism